=== PATIENT | male | born 1985 | race Caucasian/White ===

== ENCOUNTER 2019-05-27 09:52 | Inpatient (IN) ==
[2019-05-27] MEDS ORDERED: SEROQUEL PO PRN (12:59)
[2019-05-27] MEDS ORDERED: ZOFRAN IV PRN (12:59)
[2019-05-27] MEDS ORDERED: MAALOX PLUS LIQUID PO PRN (12:59)
[2019-05-27] MEDS ORDERED: ZOFRAN ODT PO PRN (12:59)
[2019-05-27] MEDS ORDERED: IMODIUM PO PRN (12:59)
[2019-05-27] MEDS ORDERED: TUBERSOL ID ONE (12:59)
[2019-05-27] MEDS ORDERED: SALINE LOCK IV FLUID XX ONE (12:59)
[2019-05-27] MEDS ORDERED: NICODERM PATCH TD PRN (12:59)
[2019-05-27] MEDS ORDERED: D5W 1,000 ML IV PRN (12:59)
[2019-05-27] MEDS ORDERED: DULCOLAX PR PRN (12:59)
[2019-05-27] MEDS ORDERED: DESYREL PO PRN (12:59)
[2019-05-27] MEDS ORDERED: ATARAX PO PRN (12:59)
[2019-05-27] MEDS ORDERED: PHENOBARBITAL IV PRN (12:59)
[2019-05-27] MEDS ORDERED: BENTYL PO PRN (12:59)
[2019-05-27] MEDS ORDERED: TYLENOL PO PRN (12:59)
[2019-05-27] MEDS ORDERED: SENOKOT PO PRN (12:59)
[2019-05-27] MEDS ORDERED: ROBAXIN PO PRN (12:59)
[2019-05-27 13:27] LABS: HEMATOCRIT 43.7 % (42.0-52.0); HEMOGLOBIN 14.6 g/dL (14.0-18.0); MCH 31.2 PG (27-31); MCHC 33.4 g/dL (33-37); MCV 93.4 FL (81-99); RBC 4.68 XMIL (4.7-6.1); RDW 11.2 % (11.5-14.5); WBC 7.76 X1000 (4.8-10.8)
[2019-05-27 13:41] LABS: AMYLASE 52 U/L (20-200); LIPASE 39 U/L (13-60)
[2019-05-27 13:45] LABS: AGAP 10; ALBUMIN 4.6 g/dL (3.5-5.0); ALKALINE PHOSPHATASE 71 U/L (32-122); BUN 18 mg/dL (8-22); CALCIUM 9.7 mg/dL (8.8-10.2); CHLORIDE 100 mmol/L (98-107); COSMO 277; CREATININE 0.6 mg/dL (0.7-1.2); ESTIMATED GFR > 60; GLUCOSE 120 mg/dL (70-104); GOT 22 U/L (10-34); GPT 36 U/L (10-44); POTASSIUM 4.4 mmol/L (3.5-5.1); SODIUM 137 mmol/L (136-145); TCO2 27 mmol/L (25-35); TOTAL PROTEIN 7.3 g/dL (6.3-8.3)
[2019-05-27 13:51] LABS: INR 0.86; PROTIME 12.1 Seconds (11.0-16.0)
[2019-05-27] MEDS ORDERED: LIBRIUM PO SCH (14:00)
[2019-05-27] MEDS: MOTRIN PO PRN (14:34)
[2019-05-27] MEDS ORDERED: M.V.I.-12 10 ML, FOLIC ACID 1 MG, MAGNESIUM SULFATE 1 GM, THIAMINE 100 MG in NS 1,000 ML IV ONE (15:00)
--- NOTE | 2019-05-27 17:26 | HISTORY AND PHYSICAL ---
CHIEF COMPLAINT: Nausea, vomiting. HISTORY OF PRESENT ILLNESS: The patient is a 34-year-old male who [facility] secondary to nausea, vomiting, abdominal pain, myalgias. States he has been heavily drinking. He has been trying to stop but he cannot. Notes that he also takes Suboxone [*] SOCIAL HISTORY: Patient is employed at [employer]. He is single. PAST MEDICAL HISTORY: Significant for chronic pain status post left BKA. He has a history of opiate abuse currently stable on Suboxone. Has a history of hypertension. MEDICATIONS: 1. Suboxone 8/ 1 film twice daily. 2. Flexeril. 3. He was prescribed hypertension medication, but he has not started it yet. ALLERGIES: No known drug allergies. REVIEW OF SYSTEMS: CIWA score is 18 secondary to mild tremors with his arms extended, moderate anxiety. He is agitated, fidgeting. He is restless, unable to sit still, has a moderate headache. Does have sweating at night as well as light sensitivity. Denies any fevers, chills, dysuria, frequency, urgency, hesitancy, polyuria or polydipsia. Denies skin rashes, weight loss, weight gain. Denies diarrhea, constipation, melena, hematochezia. SUBSTANCE ABUSE HISTORY: The patient has been in treatment facility since 2016. Went to [facility] and has been on Suboxone ever since. He has been doing well. Notes that polysubstance abuse has caused social problems as well as work related problems. Started drinking at 13, currently drinks 5 [*]shots of Tequila a day, he has over the past 3 or 4 years. He also drinks several beers daily. Started marijuana at 11 currently uses 2 to 3 times a month. Started depressants at 28. Does not take any currently. Started opiates at 15, had been abusing oxycodone up to 180 mg daily until he started Suboxone 3 years ago and he has been sober and stable on Suboxone. Started smoking at 20 currently smokes pack a day. FAMILY HISTORY: Noncontributory. PHYSICAL EXAMINATION: VITAL SIGNS: Reviewed. Patient is awake, alert, currently in no respiratory distress. HEENT: Normocephalic. NECK: Supple. CARDIOVASCULAR: Regular rate. No murmurs. Chest clear nonlabored. ABDOMEN: Soft, nondistended, nontender. EXTREMITIES: Moves all extremities. NEUROLOGIC: No focal changes. He is noted to have a left BKA. He is standing at the bedside upon entering. ASSESSMENT: 1. Nausea, vomiting. 2. Abdominal pain. 3. Myalgias. 4. Paresthesias. 5. Paroxysmal sweating. 6. Tremors. 7. Opiate abuse and currently stabilized on Suboxone. 8. Alcohol abuse withdrawal and stabilization. PLAN: We will place him on high-dose Librium taper. We will start back slowly on his Suboxone and will follow. Hopefully we will have an uneventful hospital course and we can wean Librium as we are increasing his Suboxone back to his baseline 8/2 dosing. Discussed with patient the perils of smoking as well. cc: Freddie Chavarria MD
[2019-05-27 18:46] LABS: URINE SOURCE CLEAN CATCH
[2019-05-27 18:52] LABS: BILIRUBIN URINE NEGATIVE (NEGATIVE); BLOOD URINE NEGATIVE (NEGATIVE); CLARITY CLEAR (CLEAR); COLOR YELLOW; GLUCOSE URINE NEGATIVE (NEGATIVE); KETONE URINE TRACE mg/dL (NEGATIVE); LEUKOCYTES URINE NEGATIVE (NEGATIVE); NITRITE URINE NEGATIVE (NEGATIVE); PROTEIN URINE TRACE mg/dL (NEGATIVE); UROBILINOGEN URINE NORMAL
[2019-05-27 19:01] LABS: UR AMPHETAMINES QUAL NONE DETECTED (NONE DETECT); UR BARBITUATES QUAL NONE DETECTED (NONE DETECT); UR BENZODIAZEPIN QUAL NONE DETECTED (NONE DETECT); UR CANNABINOIDS QUAL NONE DETECTED (NONE DETECT); UR COCAINE QUAL NONE DETECTED (NONE DETECT); UR METHADONE QUAL NONE DETECTED (NONE DETECT); UR METHAMPHETAMINE QUAL NONE DETECTED (NONE DETECT); UR OPIATES QUAL NONE DETECTED (NONE DETECT); UR OXYCODONE QUAL NONE DETECTED (NONE DETECT); UR PCP QUAL NONE DETECTED (NONE DETECT); UR PROPOXYPHENE QUAL NONE DETECTED (NONE DETECT); UR TCA QUAL NONE DETECTED (NONE DETECT); URINE BACTERIA 1+ /HFP; URINE CAST NONE SEEN /LPF; URINE EPITHELIAL CELLS <10 /HPF (<10); URINE SMALL ROUND CELLS RENAL PRESENT; URINE WBC <10 /HPF (<10); URINE YEAST NONE SEEN /HPF
[2019-05-27] MEDS: LIBRIUM PO SCH (22:06)
[2019-05-28] MEDS: LIBRIUM PO SCH ×4 (00:10→14:33)
[2019-05-28] MEDS ORDERED: SUBOXONE 2 MG/0.5 MG FILM SL ONE ×2 (08:23→10:00)
[2019-05-28] MEDS ORDERED: THERA M PLUS PO SCH (09:00)
[2019-05-28] MEDS ORDERED: FOLIC ACID PO SCH (09:00)
[2019-05-28] MEDS ORDERED: VITAMIN B-1 PO SCH (09:00)
[2019-05-28] MEDS ORDERED: SALINE LOCK IV FLUID XX ONE (09:24)
[2019-05-28] MEDS: PROTONIX PO SCH ×2 (10:08→10:44)
[2019-05-28] MEDS: MOTRIN PO PRN (10:20)
[2019-05-28 11:49] VITALS: BP 125/92
--- NOTE | 2019-05-28 12:42 | PROGRESS NOTE ---
DATE: 05/28/2019 SUBJECTIVE: The patient notes that he is feeling okay. His tremors are actually improving. Denies any fevers, chills, nausea, vomiting. PHYSICAL EXAMINATION: Vital Signs: Reviewed. General: He is awake, alert, oriented. He is in no current respiratory distress. HEENT: Normocephalic. Neck: Supple. Cardiovascular: Regular rate. Chest: Clear, nonlabored. Abdomen: Soft nondistended. Extremities: Moves all extremities. Neurologic: No changes. ASSESSMENT: 1. Nausea, vomiting, abdominal pain. 2. Myalgias, paresthesias. 3. Alcohol abuse withdrawal and stabilization. 4. Opiate abuse, withdrawal and stabilized on Suboxone. PLAN: To continue to wean Librium and increase his Suboxone. Continue counseling. Twenty minutes spent in total counseling this morning. cc: Freddie Chavarria MD
[2019-05-28] MEDS ORDERED: SUBOXONE 2 MG/0.5 MG FILM SL SCH (21:00)
--- NOTE | 2019-05-29 17:52 | DISCHARGE SUMMARY ---
ADMISSION DATE: 05/27/2019 DISCHARGE DATE: 05/28/2019 DISCHARGE DIAGNOSES: 1. Nausea and vomiting, improved. 2. Tremors, resolved. 3. Mild paresthesias, resolved. 4. Alcohol abuse withdrawal and stabilization. 5. Opiate abuse withdrawal and stabilization. CONSULTATIONS: None. PROCEDURES: None. BRIEF HOSPITAL COURSE: The patient is a 34-year-old male who presented to [facility] program secondary to nausea, vomiting, abdominal pain, and alcohol withdrawal symptoms. He was admitted to the hospital. Thankfully, he had uneventful hospital course. His withdrawal symptoms improved and, therefore, he will be discharged home. He will continue Suboxone at home. No further complications were noted. DISPOSITION: Patient will be discharged home. He will follow up outpatient with treatment facility of choice. cc: Freddie Chavarria MD
== END 2019-05-28 16:42 | disposition home or self-care (01) | DRG 897 ==
LOC: P.MEDSURG 11:39
PROVIDERS: ADMIT Family Medicine; ATTEND Family Medicine